=== PATIENT | female | born 1970 | race Caucasian/White ===

== ENCOUNTER 2020-10-30 08:37 | Outpatient (CLI) | payer BC, OTHER ==
[2020-10-30 09:44] LABS: Hemoglobin 10.6 g/dL (12.0-15.5); Mean Corpuscular HGB CONC 29.8 g/dL (32.0-36.0); Mean Corpuscular Hemoglobin 23.1 pg (27.0-33.0); Mean Corpuscular Volume 77.7 fl (81.6-98.3); Platelet Count 612 10x3/uL (150-450); RBC Distribution Width 17.6 % (11.5-14.5); Red Blood Cell (RBC) Count 4.58 10x6/uL (3.90-5.03); White Blood Cell (WBC) Count 7.6 10x3/uL (3.5-10.5)
[2020-10-30 09:51] LABS: PTT 25.5 sec (22.0-33.0); Prothrombin Time 10.8 sec (9.5-12.1)
[2020-10-30 09:52] LABS: Anion Gap 14 mmol/L (10-20); BUN (Urea Nitrogen) 10 mg/dL (9.8-20.1); Calc. Creatinine Clearance 0 mL/min (70-130); Carbon Dioxide 26 mmol/L (22-29); Chloride 105 mmol/L (98-107); Glucose 86 mg/dL (70-105); Potassium 4.5 mmol/L (3.5-5.1); Sodium 140 mmol/L (136-145)
[2020-10-30 16:44] LABS: SARS-CoV-2 PCR by NAA Not Detected (NotDetected)
== END 2020-10-30 08:38 | disposition home or self-care (01) ==
LOC: LABBT 08:37
PROVIDERS: ATTEND Neurological Surgery
DX: Z01.818 Encounter for other preprocedural examination (principal); M53.84 Other specified dorsopathies, thoracic region; Z20.822 Contact with and (suspected) exposure to COVID-19
CPT/HCPCS: 80048; 85027; 85610; 85730; 87635; 93005; 93010; U0003; U0005

== ENCOUNTER 2020-10-30 08:45 | Inpatient (IN) | payer BC ==
[2020-11-03 10:41] VITALS: BMI 36.2
[2020-11-04] MEDS ORDERED: EPINEPHrine 1 MG/ML AMP ONE (06:10)
[2020-11-04] MEDS ORDERED: Thrombin 5000 UNITS/5 ML VIAL ONE (06:10)
[2020-11-04] MEDS ORDERED: Bupivacaine PF 0.5% 30 ML VIAL ONE (06:10)
[2020-11-04] MEDS ORDERED: Scopolamine 1.5 mg/72 hour Patch ONE (06:42)
[2020-11-04] MEDS ORDERED: Vecuronium 10 MG VIAL ONE (06:44)
[2020-11-04] MEDS ORDERED: ePHEDrine Sulfate 50 MG/10 ML VIAL ONE (06:44)
[2020-11-04] MEDS ORDERED: Lidocaine 1% PF 5 ML VIAL ONE (06:44)
[2020-11-04] MEDS ORDERED: PHENYLEPHRINE-NS 100 MCG/ML 10 ML SYRINGE ONE (06:44)
[2020-11-04] MEDS ORDERED: Rocuronium Bromide 10 MG/ML (10ML VIAL) ONE (06:44)
[2020-11-04] MEDS ORDERED: PROPOFOL 200 MG/20 ML VIAL ONE (06:44)
[2020-11-04] MEDS ORDERED: Ondansetron PF 4 MG/2 ML Vial ONE (06:44)
[2020-11-04] MEDS ORDERED: Dexamethasone 20 MG/5 ML VIAL ONE (06:44)
[2020-11-04] MEDS ORDERED: Midazolam HCl 2 mg/2 ml Vial ONE ×2 (06:46→08:30)
[2020-11-04] MEDS ORDERED: Albumin 5% 500 ML ONE (06:49)
[2020-11-04] MEDS ORDERED: Propofol 1,000 MG/100 ML VIAL IV ONE (06:49)
[2020-11-04] MEDS ORDERED: Famotidine/PF 20 mg/2ml Vial ONE (09:48)
[2020-11-04] MEDS ORDERED: SUGAMMADEX SODIUM 200 MG/2 ML VIAL ONE (12:44)
[2020-11-04] MEDS ORDERED: Fentanyl 100 MCG/2 ML VIAL ONE ×2 (14:32→16:06)
[2020-11-04] MEDS ORDERED: Acetaminophen 325 MG TAB PO PRN (18:28)
[2020-11-04] MEDS ORDERED: Morphine 4 MG/ML VIAL SLOW IVP PRN ×3 (18:39→19:31)
[2020-11-04] MEDS ORDERED: HYDROcodone/Acetaminophen 5/325 mg Tablet PO PRN (18:40)
[2020-11-04] MEDS ORDERED: Promethazine HCl 12.5 MG SUPP PR PRN (19:30)
[2020-11-04] MEDS ORDERED: Milk Of Magnesia 30 ML UDCUP PO PRN (19:30)
[2020-11-04] MEDS ORDERED: Bisacodyl 10 MG SUPP PR PRN (19:30)
[2020-11-04] MEDS ORDERED: Acetaminophen/Codeine 30-300mg Tablet PO PRN ×2 (19:30)
[2020-11-04] MEDS ORDERED: Promethazine HCl 25 MG/ML VIAL IM PRN (19:30)
[2020-11-04] MEDS ORDERED: Fleet Enema 133 ML BOT PR PRN (19:30)
[2020-11-04] MEDS ORDERED: diphenhydrAMINE 50 MG/ML VIAL IVP PRN (19:30)
[2020-11-04] MEDS ORDERED: Mag-Al 1200 mg/1200 mg/30 ML UDCUP PO PRN (19:30)
[2020-11-04] MEDS ORDERED: Scopolamine 1.5 mg/72 hour Patch TD PRN (19:30)
[2020-11-04] MEDS ORDERED: Zolpidem Tartrate 5 MG TAB PO PRN (19:30)
[2020-11-04] MEDS ORDERED: Morphine 2 MG/ML VIAL SLOW IVP PRN (19:30)
[2020-11-04] MEDS ORDERED: tiZANidine HCl 4 MG TAB PO PRN (19:30)
[2020-11-04] MEDS ORDERED: diphenhydrAMINE 25 MG CAP PO PRN (19:30)
[2020-11-04] MEDS ORDERED: HYDROcodone/Acetaminophen 7.5/325 mg Tablet PO PRN (19:30)
[2020-11-04] MEDS: Atorvastatin Calcium 40 MG TAB PO SCH (20:38)
[2020-11-04] MEDS: Sodium Chloride 0.9% 1,000 ML IV SCH (20:38)
[2020-11-04] MEDS: Hyoscyamine Sulfate ER 0.375 mg Tablet PO SCH (20:39)
[2020-11-04] MEDS: sulfaSALAzine 500 MG TAB PO SCH (20:41)
[2020-11-04] MEDS: Cyclobenzaprine 10 MG TAB PO PRN (20:42)
[2020-11-04] MEDS: CEFAZOLIN 2 GM in Premix Bag 1 BAG IVPB SCH (20:42)
[2020-11-04] MEDS ORDERED: Ketorolac Tromethamine 30 MG/ML VIAL IVP SCH (21:00)
[2020-11-04] MEDS: HYDROcodone/Acetaminophen 7.5/325 mg Tablet PO PRN (21:20)
[2020-11-05] MEDS: HYDROcodone/Acetaminophen 7.5/325 mg Tablet PO PRN ×4 (01:58→13:56)
[2020-11-05] MEDS: CEFAZOLIN 2 GM in Premix Bag 1 BAG IVPB SCH ×2 (05:19→13:57)
[2020-11-05] MEDS: Levothyroxine Sodium 100 MCG TAB PO SCH (05:20)
[2020-11-05 06:19] LABS: Band 1 % (5-11); Hemoglobin 9.9 g/dL (12.0-16.0); Hypochromia SLIGHT = 6-15 cells (100X) (0-5/hpf); Lymphocytes 5 % (21-51); MDiff Complete? YES; Mean Corpuscular HGB CONC 29.4 g/dL (32.0-36.0); Mean Corpuscular Hemoglobin 23.1 pg (27.0-31.0); Mean Corpuscular Volume 78.8 fL (78.0-98.0); Mean Platelet Volume 7.2 fL (7.4-10.4); Monocytes 4 % (0-10); Neutrophil 90 % (42-75); Platelet Count 559 thou/uL (130-400); Platelet Morphology Comment Appears Increased; RBC Distribution Width 16.9 % (11.5-14.5); White Blood Cell (WBC) Count 17.1 thou/uL (4.8-10.8)
[2020-11-05 06:25] LABS: Anion Gap 11 mmol/L (10-20); BUN (Urea Nitrogen) 11 mg/dL (9.8-20.1); Calc. Creatinine Clearance 141 mL/min (70-130); Calcium 9.2 mg/dL (7.8-10.44); Carbon Dioxide 25 mmol/L (22-29); Chloride 109 mmol/L (98-107); Glucose 115 mg/dL (70-105); Potassium 4.1 mmol/L (3.5-5.1); Sodium 141 mmol/L (136-145)
[2020-11-05] MEDS: Sodium Chloride 0.9% 1,000 ML IV SCH (10:28)
[2020-11-05] MEDS: Cyclobenzaprine 10 MG TAB PO PRN (12:31)
[2020-11-05] MEDS: Ondansetron PF 4 MG/2 ML Vial IVP PRN (14:04)
[2020-11-05] MEDS ORDERED: Lorazepam 2 MG/ML VIAL SLOW IVP PRN (18:21)
[2020-11-05] MEDS ORDERED: Bisacodyl 10 MG SUPP PR SCH (20:30)
[2020-11-05] MEDS ORDERED: Promethazine HCl 25 MG in Sodium Chloride 0.9% 50 ML IVPB SCH (22:00)
[2020-11-05] MEDS: sulfaSALAzine 500 MG TAB PO SCH (23:11)
[2020-11-05] MEDS: Hyoscyamine Sulfate ER 0.375 mg Tablet PO SCH (23:11)
[2020-11-05] MEDS: Atorvastatin Calcium 40 MG TAB PO SCH (23:11)
[2020-11-06] MEDS ORDERED: Ketorolac Tromethamine 30 MG/ML VIAL IVP SCH (00:15)
[2020-11-06] MEDS: Ondansetron PF 4 MG/2 ML Vial IVP PRN ×2 (03:34→10:52)
[2020-11-06] MEDS: HYDROcodone/Acetaminophen 7.5/325 mg Tablet PO PRN ×3 (03:38→19:23)
[2020-11-06] MEDS: Levothyroxine Sodium 100 MCG TAB PO SCH (06:01)
[2020-11-06] MEDS: Promethazine 25 MG TAB PO PRN ×2 (08:20→19:22)
[2020-11-06 11:33] LABS: #Eosinphils 0.1 thou/uL (0.0-0.7); #Lymphocytes 1.9 thou/uL (1.20-3.40); #Monocytes 1.1 thou/uL (0.11-0.59); #Neutrophils 13.4 thou/uL (1.40-6.50); %Basophils 0.2 % (0.0-1.0); %Eosinophils 0.6 % (0.0-10.0); %Lymphocytes 11.5 % (21.0-51.0); %Monocytes 6.7 % (0.0-10.0); Hemoglobin 10.9 g/dL (12.0-16.0); MDiff Complete? YES; Mean Corpuscular Hemoglobin 23.9 pg (27.0-31.0); Mean Corpuscular Volume 79.5 fL (78.0-98.0); Mean Platelet Volume 7.2 fL (7.4-10.4); Platelet Count 556 thou/uL (130-400); Red Blood Cell (RBC) Count 4.57 mill/uL (4.20-5.40); White Blood Cell (WBC) Count 16.5 thou/uL (4.8-10.8)
[2020-11-06 11:34] LABS: Hypochromia SLIGHT = 6-15 cells (100X) (0-5/hpf); Microcytosis SLIGHT = 6-15 cells (100X) (0-5/hpf); Ovalocytes SLIGHT = 2-5 cells (100X) (0-1/hpf); Platelet Morphology Comment Appears Increased; Polychromasia SLIGHT = 2-3 cells (100X) (0-2/hpf)
[2020-11-06 11:51] LABS: Free T4 (Free Thyroxine) 1.64 ng/dL (0.70-1.48); Thyroid Stimulating Hormone 0.959 uIU/mL (0.35-4.94)
[2020-11-06] MEDS: Cyclobenzaprine 10 MG TAB PO PRN (18:14)
[2020-11-06] MEDS: Hyoscyamine Sulfate ER 0.375 mg Tablet PO SCH (19:22)
[2020-11-06] MEDS: sulfaSALAzine 500 MG TAB PO SCH (19:22)
[2020-11-06] MEDS: Atorvastatin Calcium 40 MG TAB PO SCH (19:22)
[2020-11-07] MEDS ORDERED: Acetaminophen 325 MG TAB PO PRN (02:52)
[2020-11-07] MEDS: Cyclobenzaprine 10 MG TAB PO PRN (04:26)
[2020-11-07] MEDS: HYDROcodone/Acetaminophen 7.5/325 mg Tablet PO PRN ×2 (09:39)
[2020-11-07 10:02] VITALS: BP 114/73; TEMP 97.8
== END 2020-11-07 11:00 | disposition home or self-care (01) | DRG 519 ==
LOC: SURG A 11-04 05:55 → T4-A 11-04 18:23
PROVIDERS: ADMIT Neurological Surgery; ATTEND Neurological Surgery
PROC: 01N80ZZ Release Thoracic Nerve, Open Approach (ICD-10-PCS; principal; 2020-11-04)
PROC: 00BT0ZZ Excision of Spinal Meninges, Open Approach (ICD-10-PCS; 2020-11-04)
PROC: 4A11X4G Monitoring of Peripheral Nervous Electrical Activity, Intraoperative, External Approach (ICD-10-PCS; 2020-11-04)
DX: D36.10 Benign neoplasm of peripheral nerves and autonomic nervous system, unspecified (principal); K51.90 Ulcerative colitis, unspecified, without complications; Z20.822 Contact with and (suspected) exposure to COVID-19; E03.9 Hypothyroidism, unspecified; I25.10 Atherosclerotic heart disease of native coronary artery without angina pectoris; G47.33 Obstructive sleep apnea (adult) (pediatric); D72.829 Elevated white blood cell count, unspecified; R00.0 Tachycardia, unspecified; G44.209 Tension-type headache, unspecified, not intractable; Z87.442 Personal history of urinary calculi; Z90.722 Acquired absence of ovaries, bilateral; Z79.899 Other long term (current) drug therapy; Z79.890 Hormone replacement therapy; Z83.3 Family history of diabetes mellitus; Z98.51 Tubal ligation status; I25.2 Old myocardial infarction; Z82.49 Family history of ischemic heart disease and other diseases of the circulatory system; Z81.8 Family history of other mental and behavioral disorders
CPT/HCPCS: 36415; 76000; 80048; 84439; 84443; 84481; 85007; 85025; 85027; 86850; 86900; 86901; 87040; 88307; 88331; 88341; 88342; 88360; J0171; J0690; J1100; J1885; J2060; J2250; J2270; J2405; J2550; J2704; J3010; J3370; J3490; P9045; Q0163; Q0169; S0020; S0028

== ENCOUNTER 2023-04-15 10:25 | Outpatient (CLI) | payer BC ==
[2023-04-15 11:25] LABS: Hematocrit 38.2 % (34.9-44.5); Mean Corpuscular HGB CONC 31.4 g/dL (32.0-36.0); Mean Corpuscular Hemoglobin 25.9 pg (27.0-33.0); Mean Corpuscular Volume 82.3 fl (81.6-98.3); Platelet Count 603 10x3/uL (150-450); RBC Distribution Width 16.8 % (11.5-14.5); Red Blood Cell (RBC) Count 4.64 10x6/uL (3.90-5.03); White Blood Cell (WBC) Count 6.5 10x3/uL (3.5-10.5)
[2023-04-15 12:01] LABS: Anion Gap 12 mmol/L (10-20); BUN (Urea Nitrogen) 13 mg/dL (9.8-20.1); Calc. Creatinine Clearance 0 mL/min (70-130); Calcium 9.3 mg/dL (7.8-10.44); Carbon Dioxide 24 mmol/L (22-29); Chloride 108 mmol/L (98-107); Estimated GFR 90; Glucose 96 mg/dL (70-105); Potassium 4.3 mmol/L (3.5-5.1); Sodium 140 mmol/L (136-145)
[2023-04-15 12:27] LABS: PTT 27.5 sec (22.0-33.0); Prothrombin Time 10.5 sec (9.5-12.1)
== END 2023-04-15 10:26 | disposition home or self-care (01) ==
LOC: LABBT 10:25
PROVIDERS: ATTEND Neurological Surgery
DX: Z01.812 Encounter for preprocedural laboratory examination (principal); M50.022 Cervical disc disorder at C5-C6 level with myelopathy; M50.023 Cervical disc disorder at C6-C7 level with myelopathy
CPT/HCPCS: 80048; 85027; 85610; 85730

== ENCOUNTER 2023-04-19 06:58 | Day surgery (SDC) | payer BC ==
[2023-04-15 10:56] VITALS: BMI 36.9
[2023-04-19] MEDS ORDERED: Thrombin 5000 UNITS/5 ML VIAL ONE (08:50)
[2023-04-19] MEDS ORDERED: Vancomycin 1 GM VIAL ONE (08:50)
[2023-04-19] MEDS ORDERED: Sodium Chloride 0.9% 100 ML ONE (09:50)
[2023-04-19] MEDS ORDERED: CEFAZOLIN 2 GM VIAL ONE (09:50)
[2023-04-19] MEDS ORDERED: Midazolam HCl 2 mg/2 ml Vial ONE (10:05)
[2023-04-19] MEDS ORDERED: Glycopyrrolate 0.2 MG/ML 5 ML SYRINGE ONE (10:07)
[2023-04-19] MEDS ORDERED: Ondansetron PF 4 MG/2 ML Vial ONE (10:07)
[2023-04-19] MEDS ORDERED: NEOSTIGMINE 3 MG/3 ML SYR 3 MG/3 ML SYRINGE ONE (10:07)
[2023-04-19] MEDS ORDERED: Rocuronium Bromide 10 MG/ML (10ML VIAL) ONE (10:07)
[2023-04-19] MEDS ORDERED: PROPOFOL 200 MG/20 ML VIAL ONE (10:07)
[2023-04-19] MEDS ORDERED: Lidocaine 1% PF 5 ML VIAL ONE (10:07)
[2023-04-19] MEDS ORDERED: PHENYLEPHRINE-NS 100 MCG/ML 10 ML SYRINGE ONE (10:07)
[2023-04-19] MEDS ORDERED: Dexamethasone 20 MG/5 ML VIAL ONE (10:07)
[2023-04-19] MEDS ORDERED: fentaNYL 50 mcg/mL 1 mL Vial ONE ×2 (10:13→12:14)
[2023-04-19] MEDS ORDERED: Fentanyl 250 MCG/5 ML VIAL ONE (13:37)
[2023-04-19] MEDS ORDERED: HYDROmorphone 0.5 MG/0.5 ML SYRINGE ONE ×2 (14:16→14:47)
[2023-04-19] MEDS ORDERED: Acetaminophen 500 MG TAB ONE (15:00)
[2023-04-19] MEDS ORDERED: Ketorolac Tromethamine 30 MG/ML VIAL ONE (15:00)
[2023-04-19] MEDS ORDERED: Oxymetazoline HCl 0.05% (30 ML BOT) ONE (15:42)
[2023-04-19] MEDS ORDERED: Ondansetron ODT 4 MG TAB ONE (16:04)
[2023-04-19] MEDS ORDERED: traMADol HCl 50 MG TAB ONE (17:24)
== END 2023-04-19 18:10 | disposition home or self-care (01) ==
LOC: SDC 06:58
PROVIDERS: ATTEND Neurological Surgery
PROC: 0RG10A0 Fusion of Cervical Vertebral Joint with Interbody Fusion Device, Anterior Approach, Anterior Column, Open Approach (ICD-10-PCS; principal; 2023-04-19)
DX: M50.022 Cervical disc disorder at C5-C6 level with myelopathy (principal); M50.023 Cervical disc disorder at C6-C7 level with myelopathy; D32.1 Benign neoplasm of spinal meninges
CPT/HCPCS: C1713; J1100; J1170; J1885; J2250; J2405; J2704; J3010; J3370; J3490; Q0162